=== PATIENT | female | born 1960 | race African-American/Black ===

== ENCOUNTER → 2016-09-17 | Outpatient (CLI) | payer OTHER | LOC: WI 10:39 | DX: Z12.31 Encounter for screening mammogram for malignant neoplasm of breast (principal) | CPT/HCPCS: 77067; G0202 ==

== ENCOUNTER → 2016-10-19 | Outpatient (CLI) | payer OTHER ==
[2016-10-19 10:54] LABS: APPEARANCE,URINE CLEAR; BILIRUBIN,URINE NEGATIVE (NEGATIVE); GLUCOSE, URINE NEGATIVE (NEGATIVE); KETONES,URINE NEGATIVE (NEGATIVE); LEUKOCYTE ESTERASE,URINE NEGATIVE (NEGATIVE); NITRITE,URINE NEGATIVE (NEGATIVE); PROTEIN,URINE NEGATIVE (NEGATIVE); URINE SPECIFIC GRAVITY 1.001; UROBILINOGEN,URINE NEGATIVE mg/dL (<2.0)
[2016-10-19 11:13] LABS: ALANINE AMINOTRANSFERASE 23 U/L (9-52); ALBUMIN 4.1 g/dL (3.5-5.0); ALKALINE PHOSPHATASE 85 U/L (38-126); ANION GAP 8 (5-19); ASPARTATE AMINO TRANSFERASE 22 U/L (14-36); BILIRUBIN,TOTAL 0.6 mg/dL (0.2-1.3); BLOOD UREA NITROGEN 18 mg/dL (7-20); CALCIUM 11.3 mg/dL (8.4-10.2); CARBON DIOXIDE 30 mmol/L (22-30); CHLORIDE 105 mmol/L (98-107); CHOLESTEROL 224.64 mg/dL (0-200); Direct HDL 92 mg/dL (>40); GLUCOSE 80 mg/dL (75-110); SODIUM 142.9 mmol/L (137-145); TOTAL PROTEIN 7.1 g/dL (6.3-8.2); TRIGLYCERIDES 81 mg/dL (<150); URIC ACID 5.8 mg/dL (2.5-7.5)
[2016-10-19 11:22] LABS: POTASSIUM 3.7 mmol/L (3.6-5.0)
[2016-10-19 11:23] LABS: DIRECT LDL 89 mg/dL (<100)
[2016-10-19 11:42] LABS: THYROID STIMULATING HORMONE 2.95 uIU/mL (0.47-4.68)
--- NOTE | 2016-10-19 17:13 | EKG REPORT ---
SEVERITY:- ABNORMAL ECG - SINUS RHYTHM CONSIDER LEFT VENTRICULAR HYPERTROPHY : Confirmed by: Rosalie Gaston MD 19-Oct-2016 17:12:53
== END ==
LOC: CCC 09:18
DX: M25.50 Pain in unspecified joint (principal); I10 Essential (primary) hypertension; L65.9 Nonscarring hair loss, unspecified
CPT/HCPCS: 36415; 80053; 80061; 81001; 84439; 84443; 84550; 85652; 86038; 86430; 93005; 93010

== ENCOUNTER → 2017-02-25 | Outpatient (CLI) | payer OTHER ==
[2017-02-25 18:11] LABS: ALBUMIN 3.6 g/dL (3.5-5.0); CALCIUM 10.1 mg/dL (8.4-10.2); MAGNESIUM 2.5 mg/dL (1.6-2.3); PHOSPHORUS 3.7 mg/dL (2.5-4.5)
== END ==
LOC: CCC 17:06
DX: E83.52 Hypercalcemia (principal)
CPT/HCPCS: 36415; 82040; 82310; 82330; 83735; 83970; 84100

== ENCOUNTER → 2018-09-20 | Outpatient (CLI) | payer OTHER ==
--- NOTE | 2018-09-20 15:49 | RADIOLOGY REPORT (SQ) ---
EXAM DESCRIPTION: ANKLE RIGHT AP/LATERAL COMPLETED DATE/TIME: 09/20/2018 3:35 pm REASON FOR STUDY: RT ANKLE SWELLING; ANKYLOSIS RT ANKLE M24.671 ANKYLOSIS, RIGHT ANKLE COMPARISON: None. NUMBER OF VIEWS: Two views. TECHNIQUE: AP and lateral radiographic images acquired of the right ankle. LIMITATIONS: None. FINDINGS: MINERALIZATION: Normal. BONES: No acute fracture or dislocation. No worrisome bone lesions. JOINTS: There is a small joint effusion. SOFT TISSUES: There is soft tissue swelling. OTHER: No other significant finding. IMPRESSION: Small joint effusion. Soft tissue swelling. No fracture. TECHNICAL DOCUMENTATION: JOB ID: [id number] [employer]- All Rights Reserved Reading location - IP/workstation name: [email or web address]
== END ==
LOC: OD 15:19
DX: M24.671 Ankylosis, right ankle (principal); M25.471 Effusion, right ankle

== ENCOUNTER → 2018-11-09 | Outpatient (CLI) | payer OTHER ==
[2018-11-09 11:35] LABS: ABSOLUTE BASOPHILS # (AUTO) 0.1 10^3/uL (0.0-0.2); ABSOLUTE EOSINOPHILS # (AUTO) 0.1 10^3/uL (0.0-0.6); ABSOLUTE LYMPHOCYTES (AUTO) 2.4 10^3/uL (0.5-4.7); ABSOLUTE MONOCYTES (AUTO) 0.5 10^3/uL (0.1-1.4); ABSOLUTE NEUT (AUTO) 4.5 10^3/uL (1.7-8.2); BASOPHILS % (AUTO) 0.8 % (0-2); EOSINOPHILS % (AUTO) 1.8 % (0-6); HEMATOCRIT 39.2 % (36.0-47.0); HEMOGLOBIN 13.4 g/dL (12.0-15.5); LYMPHOCYTES % (AUTO) 31.7 % (13-45); MEAN CORPUSCULAR HEMOGLOBIN 29.6 pg (27.0-33.4); MEAN CORPUSCULAR HGB CONC 34.3 g/dL (32.0-36.0); MEAN CORPUSCULAR VOLUME 86 fl (80-97); MONOCYTES % (AUTO) 6.7 % (3-13); PLATELET COUNT 365 10^3/uL (150-450); RED BLOOD COUNT 4.54 10^6/uL (3.72-5.28); RED CELL DISTRIBUTION WIDTH 14.9 % (11.5-14.0); TOTAL CELLS COUNTED % (AUTO) 100 %; WHITE BLOOD COUNT 7.6 10^3/uL (4.0-10.5)
[2018-11-09 11:55] LABS: ALANINE AMINOTRANSFERASE 24 U/L (9-52); ALBUMIN 4.6 g/dL (3.5-5.0); ALKALINE PHOSPHATASE 114 U/L (38-126); ANION GAP 9 (5-19); ASPARTATE AMINO TRANSFERASE 29 U/L (14-36); BILIRUBIN,DIRECT 0.3 mg/dL (0.0-0.4); BILIRUBIN,TOTAL 0.4 mg/dL (0.2-1.3); BLOOD UREA NITROGEN 15 mg/dL (7-20); CALCIUM 11.2 mg/dL (8.4-10.2); CARBON DIOXIDE 28 mmol/L (22-30); CHLORIDE 104 mmol/L (98-107); GLUCOSE 88 mg/dL (75-110); POTASSIUM 3.4 mmol/L (3.6-5.0); SODIUM 141.3 mmol/L (137-145); TOTAL PROTEIN 8.2 g/dL (6.3-8.2)
--- NOTE | 2018-11-09 12:57 | RADIOLOGY REPORT (SQ) ---
EXAM DESCRIPTION: KNEE RIGHT 2 VIEWS COMPLETED DATE/TIME: 11/09/2018 11:39 am REASON FOR STUDY: TRAUMATIC ARTHROPATHY, RIGHT KNEE Z00.00 ENCNTR FOR GENERAL ADULT MEDICAL EXAM W/ O ABNORMAL FI M12.561 TRAUMATIC ARTHROPATHY, RIGHT KNEE COMPARISON: None. NUMBER OF VIEWS: Two views. TECHNIQUE: AP and lateral radiographic images acquired of the right knee. LIMITATIONS: None. FINDINGS: MINERALIZATION: Normal. BONES: No acute fracture or dislocation. No worrisome bone lesions. JOINT: No effusion. SOFT TISSUES: No soft tissue swelling. No radio-opaque foreign body. OTHER: No other significant finding. IMPRESSION: NEGATIVE STUDY OF THE RIGHT KNEE. NO RADIOGRAPHIC EVIDENCE OF ACUTE INJURY. TECHNICAL DOCUMENTATION: JOB ID: [id number] [employer]- All Rights Reserved Reading location - IP/workstation name: [email or web address]
== END ==
LOC: CCC 10:49
DX: Z00.00 Encounter for general adult medical examination without abnormal findings (principal); M12.561 Traumatic arthropathy, right knee
CPT/HCPCS: 36415; 80053; 82306; 82330; 83036; 83970; 85025

== ENCOUNTER → 2019-05-08 | Outpatient (CLI) | payer OTHER ==
[2019-05-08 13:29] LABS: ALBUMIN 4.4 g/dL (3.5-5.0); ALKALINE PHOSPHATASE 126 U/L (38-126); ANION GAP 7 (5-19); ASPARTATE AMINO TRANSFERASE 30 U/L (14-36); BILIRUBIN,DIRECT 0.1 mg/dL (0.0-0.4); BILIRUBIN,TOTAL 0.3 mg/dL (0.2-1.3); BLOOD UREA NITROGEN 18 mg/dL (7-20); CALCIUM 11.3 mg/dL (8.4-10.2); CARBON DIOXIDE 31 mmol/L (22-30); CHLORIDE 104 mmol/L (98-107); GLUCOSE 93 mg/dL (75-110); POTASSIUM 3.9 mmol/L (3.6-5.0)
[2019-05-09 07:38] LABS: HEPATITIS C VIRUS AB 0.1 s/co ratio (0.0-0.9)
== END ==
LOC: CCC 12:26
DX: E21.2 Other hyperparathyroidism (principal); Z20.5 Contact with and (suspected) exposure to viral hepatitis
CPT/HCPCS: 36415; 80053; 86803; 86804

== ENCOUNTER 2019-07-17 16:21 | Inpatient (IN) | payer MEDICAID, OTHER ==
--- NOTE | 2019-07-17 16:28 | ER Document Report ---
ED Medical Screen (RME) - General Chief Complaint: Slurred Speech Stated Complaint: SLURRED SPEECH Time Seen by Provider: 07/17/19 16:23 Primary Care Provider: RICARDO KIMBALL [Primary Care Provider] - Follow up as needed Mode of Arrival: Ambulatory Information source: Patient Notes: 58-year-old female presented to ED for complaint of strokelike symptoms at her primary care's office. She states she has been having these symptoms since Tuesday. She states she has had some feeling like her tongue was swollen some slurring of her speech drooping of her face and she states she keeps falling since Tuesday. She states she has no new symptoms since Tuesday. She states she attempted to give plasma today so they took her off of it. She then went to her primary care doctor who noticed her symptoms and sent her to the emergency room. Patient is alert oriented she does have a little bit of slurring to her speech. Patient does have some droop to the left side of her face there is no palmar drift. She states she has had some weakness to the left leg. She does have some weight gain in the past month. I have greeted and performed a rapid initial assessment of this patient. A comprehensive ED assessment and evaluation of the patient, analysis of test results and completion of medical decision making process will be conducted by an additional ED providers. TRAVEL OUTSIDE OF THE [place] IN LAST 30 DAYS: No - Related Data Allergies/Adverse Reactions: acetaminophen [From Percocet] Allergy (Verified 10/15/12 11:56) ibuprofen [Ibuprofen] Allergy (Verified 10/15/12 11:56) morphine [Morphine] Allergy (Verified 10/15/12 11:56) oxycodone HCl [From Percocet] Allergy (Verified 10/15/12 11:56) prochlorperazine edisylate [From Compazine] Allergy (Verified 10/15/12 11:55) prochlorperazine maleate [From Compazine] Allergy (Verified 10/15/12 11:55) Past Medical History - Past Medical History Cardiac Medical History: Reports: Hx Hypertension - Immunizations Immunizations up to date: Yes Hx Diphtheria, Pertussis, Tetanus Vaccination: Yes Doctor's Discharge - Discharge Referrals: RICARDO KIMBALL [Primary Care Provider] - Follow up as needed
[2019-07-17 17:26] LABS: ABSOLUTE EOSINOPHILS # (AUTO) 0.2 10^3/uL (0.0-0.6); ABSOLUTE LYMPHOCYTES (AUTO) 1.7 10^3/uL (0.5-4.7); ABSOLUTE MONOCYTES (AUTO) 0.4 10^3/uL (0.1-1.4); ABSOLUTE NEUT (AUTO) 4.2 10^3/uL (1.7-8.2); BASOPHILS % (AUTO) 0.7 % (0-2); EOSINOPHILS % (AUTO) 2.6 % (0-6); HEMATOCRIT 40.5 % (36.0-47.0); HEMOGLOBIN 13.4 g/dL (12.0-15.5); LYMPHOCYTES % (AUTO) 25.6 % (13-45); MEAN CORPUSCULAR HEMOGLOBIN 29.3 pg (27.0-33.4); MEAN CORPUSCULAR HGB CONC 33.1 g/dL (32.0-36.0); MEAN CORPUSCULAR VOLUME 88 fl (80-97); MONOCYTES % (AUTO) 6.5 % (3-13); PLATELET COUNT 355 10^3/uL (150-450); RED BLOOD COUNT 4.59 10^6/uL (3.72-5.28); RED CELL DISTRIBUTION WIDTH 15.1 % (11.5-14.0); SEGMENTED NEUTROPHILS % (AUTO) 64.6 % (42-78); TOTAL CELLS COUNTED % (AUTO) 100 %; WHITE BLOOD COUNT 6.6 10^3/uL (4.0-10.5)
[2019-07-17 17:33] LABS: INTERNATIONAL RATION (INR) 0.87; PARTIAL THROMBOPLASTIN TIME 28.4 SEC (23.5-35.8); PROTHROMBIN TIME 11.8 SEC (11.4-15.4)
[2019-07-17 17:37] LABS: AMORPHOUS SEDIMENT,URINE TRACE /HPF; APPEARANCE,URINE CLOUDY; BILIRUBIN,URINE NEGATIVE (NEGATIVE); COLOR,URINE YELLOW; GLUCOSE, URINE NEGATIVE (NEGATIVE); KETONES,URINE NEGATIVE (NEGATIVE); PROTEIN,URINE NEGATIVE (NEGATIVE); URINE SPECIFIC GRAVITY 1.006; UROBILINOGEN,URINE NEGATIVE mg/dL (<2.0)
[2019-07-17 17:46] LABS: ALBUMIN 3.8 g/dL (3.5-5.0); ALKALINE PHOSPHATASE 105 U/L (38-126); ANION GAP 9 (5-19); ASPARTATE AMINO TRANSFERASE 26 U/L (14-36); BILIRUBIN,DIRECT 0.1 mg/dL (0.0-0.4); BILIRUBIN,TOTAL 0.2 mg/dL (0.2-1.3); BLOOD UREA NITROGEN 15 mg/dL (7-20); CALCIUM 10.2 mg/dL (8.4-10.2); CARBON DIOXIDE 28 mmol/L (22-30); CHLORIDE 104 mmol/L (98-107); GLUCOSE 95 mg/dL (75-110); POTASSIUM 3.5 mmol/L (3.6-5.0); TOTAL PROTEIN 6.9 g/dL (6.3-8.2)
--- NOTE | 2019-07-17 18:55 | RADIOLOGY REPORT (SQ) ---
EXAM DESCRIPTION: CT HEAD WITHOUT COMPLETED DATE/TIME: 07/17/2019 6:38 pm REASON FOR STUDY: Slurred speech, left weakness COMPARISON: CT brain 12/12/2009 TECHNIQUE: Axial images acquired through the brain without intravenous contrast. Images reviewed wi th bone, brain and subdural windows. Additional sagittal and coronal reconstructions were generated. Images stored on PACS. All CT scanners at this facility use dose modulation, iterative reconstruction, and/or weight based d osing when appropriate to reduce radiation dose to as low as reasonably achievable (ALARA). [facility]: Dose Right [facility]: CareDose [facility]: Dose Right [facility]: Teradose 4D [facility]: [employer] RADIATION DOSE: CT Rad equipment meets quality standard of care and radiation dose reduction techniq ues were employed. CTDIvol: 53.2 mGy. DLP: 991 mGy-cm. mGy. LIMITATIONS: None. FINDINGS: VENTRICLES: Normal size and contour. CEREBRUM: There is focal low attenuation along the right posterior limb internal capsule/medial basal ganglia on axial images 16-19 and coronal image 32/60. This could represent an early subacute infar ct 1 week to 1-month-old. No CT evidence of acute intracranial hemorrhage, mass effect, or midline s hift. CEREBELLUM: No masses. No hemorrhage. No alteration of density. No evidence for acute infarction. EXTRAAXIAL SPACES: No fluid collections. No masses. ORBITS AND GLOBE: No intra- or extraconal masses. Normal contour of globe without masses. CALVARIUM: No fracture. PARANASAL SINUSES: No fluid or mucosal thickening. SOFT TISSUES: No mass or hematoma. OTHER: No other significant finding. IMPRESSION: Early subacute nonhemorrhagic infarct in the right posterior limb internal capsule/later al basal ganglia. EVIDENCE OF ACUTE STROKE: Yes COMMENT: Quality ID # [id number]: Final reports with documentation of one or more dose reduction techniques (e.g., Automated exposure control, adjustment of the mA and/or kV according to patient size, use of iterative reconstruction technique) TECHNICAL DOCUMENTATION: JOB ID: [id number] [employer]- All Rights Reserved Reading location - IP/workstation name: [email or web address]
[2019-07-17] MEDS ORDERED: ATORVASTATIN CALCIUM 20 MG TABLET PO ONE (19:35)
[2019-07-17] MEDS ORDERED: ASPIRIN 81 MG TABLET, CHEWABLE PO ONE (19:35)
--- NOTE | 2019-07-17 19:46 | ER Document Report ---
ED Neuro Symptoms/Deficit - General Chief Complaint: Slurred Speech Stated Complaint: SLURRED SPEECH Time Seen by Provider: 07/17/19 16:23 Primary Care Provider: [facility] [Primary Care Provider] - Follow up as needed Mode of Arrival: Ambulatory Information source: Patient, Relative Notes: Hx. HTN. No DM. Non-smoker. No CAD. FHx. negative for CVA. Not taking ASA or Statin. TRAVEL OUTSIDE OF THE [place] IN LAST 30 DAYS: No - HPI Patient complains to provider of: Difficulty walking, Facial Droop, Speech Impairment. No: Falling, Paresthesia, Vision Changes Onset: Other - 4 days ago Awoke with symptoms: No Exact time of onset: 8 PM Tuesday Symptoms are: Constant Duration: Continues in ED, More than 3 hrs Quality of pain: No pain Loss of consciousness: No loss of consciousness Was STROKE ALERT Called: No Baseline Cognitive: Alert, oriented X 3 Baseline Gait: Walks w/o assistance New weakness: LLE, L facial Decreased ability to stand/walk: Difficult Impaired speech/swallowing: Difficult - minimal slurring and tongue feels swollen. Eating/drinking normally. Vision problem/glaucoma: No Associated symptoms: denies: Chest pain, Headache, Seizure Similar symptoms previously: No Recently seen / treated by doctor: Yes - sent to ED by [facility] provider - Related Data Allergies/Adverse Reactions: acetaminophen [From Percocet] Allergy (Verified 10/15/12 11:56) ibuprofen [Ibuprofen] Allergy (Verified 10/15/12 11:56) morphine [Morphine] Allergy (Verified 10/15/12 11:56) oxycodone HCl [From Percocet] Allergy (Verified 10/15/12 11:56) prochlorperazine edisylate [From Compazine] Allergy (Verified 10/15/12 11:55) prochlorperazine maleate [From Compazine] Allergy (Verified 10/15/12 11:55) Past Medical History - General Information source: Patient - On Amlodipine - Social History Smoking Status: Never Smoker Frequency of alcohol use: None Drug Abuse: None Family History: Reviewed & Not Pertinent Patient has suicidal ideation: No Patient has homicidal ideation: No - Past Medical History Cardiac Medical History: Reports: Hx Hypertension - Immunizations Immunizations up to date: Yes Hx Diphtheria, Pertussis, Tetanus Vaccination: Yes Review of Systems - Review of Systems Notes: Constitutional: Negative for fever. HENT: Negative for sore throat. Eyes: Negative for visual changes. Cardiovascular: Negative for chest pain. Respiratory: Negative for shortness of breath. Gastrointestinal: Negative for abdominal pain, vomiting or diarrhea. Genitourinary: Negative for dysuria. Musculoskeletal: Negative for back pain. Skin: Negative for rash. Neurological: As per HPI. 10 point ROS negative except as marked above and in HPI. Physical Exam - Vital signs Vitals: Temp Pulse Resp BP Pulse Ox 98.3 F 85 16 154/94 H 100 07/17/19 16:26 07/17/19 16:26 07/17/19 16:26 07/17/19 16:26 07/17/19 16:26 - Notes Notes: GENERAL: Well-developed well-nourished appearing in no acute distress. SKIN: Good turgor no rashes. HEAD: Normocephalic atraumatic. EYES: PERRLA. Conjunctivae and sclerae clear. EARS: CANALS AND TMS CLEAR. NOSE: CLEAR. MOUTH: Speech is minimally slurred. Normal gag reflex. Patient was eating and drinking when I entered the room and was having no difficulty with this. Moist mucosa. Good dentition. No stridor or edema. No drooling. NECK: Supple. No masses or thyromegaly. No adenopathy. Carotids 2+ without bruits. No JVD. Throat, clear. BACK: Symmetrical without tenderness. CHEST: Respirations unlabored. Breath sounds clear and symmetrical. HEART: Regular rhythm. No murmur gallop or rub. ABDOMEN: Soft nontender without masses, organomegaly or rebound. Bowel sounds normally active. No bruits. GENITALIA: Deferred. EXTREMITIES: No edema. No calf tenderness. Cap refill less than 1.5 seconds. Dorsalis pedis and posterior tibial pulses 3+ and symmetrical. NEUROLOGICAL: GCS 15. Alert and oriented x3. Dragging left lower extremity when she tries to walk but is able to stand. Speech is fluent but mildly slu rred.. Minimal left facial ptosis involving lower face only with otherwise normal cranial nerves II through XII intact. Sensation normal throughout. Motor strength is 4/5 left lower extremity with 5/5 in the other 3 extremities. Normal tone. Course - Re-evaluation Re-evalutation: 12/10/19 19:56 Patient has findings on CT scan consistent with a subacute infarct in the posterior limb of the right internal capsule. There is no associated hemorrhage. This appears to be subacute per radiologist and that is consistent with clinical history. Patient is not a candidate for lytic or interventional therapy based on timeframe. Findings are discussed with on-call hospitalist Dr. Spears who will admit to the floor. Findings and recommendations have been discussed with patient and her boyfriend at the bedside and they expressed understanding and agreement with treatment recommendations.. - Vital Signs Vital signs: Temp Pulse Resp BP Pulse Ox 98.3 F 85 20 131/68 H 100 07/17/19 16:27 07/17/19 16:26 07/17/19 19:21 07/17/19 19:21 07/17/19 19:21 - Laboratory Result Diagrams: 07/17/19 17:02 07/17/19 17:02 Laboratory results interpreted by me: 07/17/19 07/17/19 07/17/19 17:02 17:02 17:04 RDW 15.1 H Potassium 3.5 L Est GFR (MDRD) Non-Af 50 L Urine Blood SMALL H - Diagnostic Test Radiology reviewed: Reports reviewed Discharge - Discharge Clinical Impression: Subacute ischemic CVA Condition: Fair Disposition: ADMITTED INPATIENT Admitting Provider: Regan (Hospitalist) Unit Admitted: Medical Floor Ref[facility]: [facility] [Primary Care Provider] - Follow up as needed
[2019-07-17] MEDS ORDERED: LABETALOL HCL INJ 20 MG/4 ML DISP.SYRIN IV PRN (20:55)
[2019-07-17] MEDS ORDERED: MAGNESIUM HYDROXIDE SUSP 30 ML UDCUP PO PRN (21:01)
[2019-07-17] MEDS ORDERED: ONDANSETRON HCL INJ/PF 4 MG/2 ML SDV IV PRN (21:01)
[2019-07-17] MEDS ORDERED: MAG HYDROX/AL HYDROX/SIMETH SUSP 30 ML UDCUP PO PRN (21:01)
[2019-07-17] MEDS ORDERED: TRAMADOL HCL 50 MG TABLET PO PRN (21:06)
[2019-07-17] MEDS ORDERED: ATORVASTATIN CALCIUM 20 MG TABLET PO SCH (22:00)
[2019-07-17] MEDS ORDERED: HEPARIN SOD (PORCINE) 5,000 UNIT/ML 1 ML VIAL SUBCUT SCH (22:00)
[2019-07-17] MEDS ORDERED: FAMOTIDINE 20 MG TABLET PO SCH (22:00)
[2019-07-17 22:29] VITALS: BP 129/73
--- NOTE | 2019-07-18 00:09 | PDOC H&P ---
History of Present Illness Admission Date/PCP: 07/17/19 20:08 [facility] Patient complains of: Left-sided weakness History of Present Illness: STAN OATES is a 58 year old female who presents the emergency room with a 5- day history of left-sided weakness. She admits to the sudden onset of mild weakness in her left lower extremity associated with mild drooping of the left side of her face as well as minimal slurring of her speech "I feel like my tongue is thick", beginning 5 days ago and persisting since that time. She denies other associated or accompanying signs and symptoms. She denies prior similar episodes. She has not identified any aggravating or ameliorating f actors for her left-sided weakness. In the emergency room she was found to have an ischemic stroke involving the posterior horn of the right internal capsule. She was subsequently admitted to the hospital for further evaluation and treatment. Past Medical History Cardiac Medical History: Reports: Hypertension Denies: Coronary Artery Disease, Myocardial Infarction, Hyperlipidema Pulmonary Medical History: Denies: Asthma, Chronic Obstructive Pulmonary Disease (COPD) EENT Medical History: Denies: Cataracts, Ears - Hearing aids Neurological Medical History: Denies: Hemorrhagic CVA, Ischemic CVA, Seizures Endocrine Medical History: Denies: Diabetes Mellitus Type 1, Diabetes Mellitus Type 2, Hyperthyroidism, Hypothyroidism, Obesity Renal/ Medical History: Denies: Chronic Kidney Disease, Nephrolithiasis Malignancy Medical History: Reports: None GI Medical History: Denies: Cirrhosis, Crohn's Disease, Hepatitis, Ulcerative Colitis Musculoskeltal Medical History: Denies: Arthritis, Gout Skin Medical History: Denies: Eczema, Psoriasis Psychiatric Medical History: Denies: Alcohol Dependency, Substance Abuse, Tobacco Dependency Traumatic Medical History: Reports: None Hematology: Denies: Anemia, Bleeding Tendencies Infectious Medical History: Reports: None Past Surgical History Past Surgical History: Reports: None Social History Information Source: Patient Lives with: Alone Smoking Status: Never Smoker Electronic Cigarette use?: No Frequency of Alcohol Use: None Hx Recreational Drug Use: No Drugs: None Hx Prescription Drug Abuse: No - Advance Directive Resuscitation Status: Full Code Surrogate healthcare decision maker:: Saul Bray Family History Family History: Hypertension. denies: CAD, CVA, DM, Malignancy Parental Family History Reviewed: Yes Children Family History Reviewed: No Sibling(s) Family History Reviewed.: Yes Medication/Allergy Home Medications: Amlodipine Besylate [Norvasc 5 mg Tablet] 5 mg PO DAILY 07/17/19 Cyclobenzaprine HCl [Flexeril 10 mg Tablet] 10 mg PO Q8HP PRN 07/17/19 Penicillin V Potassium [Penicillin Vk 500 mg Tablet] 250 mg PO QIDP PRN 07/17/19 Tramadol HCl [Ultram 50 mg Tablet] 50 mg PO Q6HP PRN 07/17/19 Allergies/Adverse Reactions: acetaminophen [From Percocet] Allergy (Verified 10/15/12 11:56) ibuprofen [Ibuprofen] Allergy (Verified 10/15/12 11:56) morphine [Morphine] Allergy (Verified 10/15/12 11:56) oxycodone HCl [From Percocet] Allergy (Verified 10/15/12 11:56) prochlorperazine edisylate [From Compazine] Allergy (Verified 10/15/12 11:55) prochlorperazine maleate [From Compazine] Allergy (Verified 10/15/12 11:55) Review of Systems Constitutional: PRESENT: as per HPI, weakness - Left lower extremity and left facial weakness. ABSENT: chills, fever(s), headache(s) Eyes: ABSENT: visual disturbances, other - Eye pain Ears: ABSENT: hearing changes, other - Ear pain Nose, Mouth, and Throat: ABSENT: headache(s), mouth pain, sore throat Cardiovascular: ABSENT: chest pain, palpitations Respiratory: ABSENT: cough, dyspnea Gastrointestinal: ABSENT: abdominal pain, constipation, diarrhea, nausea, vomiting Musculoskeletal: PRESENT: muscle weakness - Left lower extremity and left facial weakness. ABSENT: back pain, joint swelling Integumentary: ABSENT: pruritus, rash Neurological: PRESENT: abnormal speech - Mild slurring of speech, focal weakness - Left lower extremity and left facial weakness. ABSENT: abnormal gait, abnormal movements, confusion, convulsions, lack of coordination, memory loss, syncope Psychiatric: ABSENT: anxiety, depression Endocrine: ABSENT: cold intolerance, heat intolerance Hematologic/Lymphatic: ABSENT: easy bleeding, easy bruising Allergic/Immunologic: ABSENT: seasonal rhinorrhea Physical Exam Vital Signs: Temp Pulse Resp BP Pulse Ox 98.3 F 85 20 131/68 H 100 07/17/19 16:27 07/17/19 16:26 07/17/19 19:21 07/17/19 19:21 07/17/19 19:21 Intake & Output 07/15/19 07/16/19 07/17/19 23:59 23:59 23:59 Weight 63.9 kg General appearance: PRESENT: no acute distress, cooperative Head exam: PRESENT: atraumatic, normocephalic Eye exam: PRESENT: conjunctiva pink, EOMI. ABSENT: conjunctival injection, nystagmus, scleral icterus Ear exam: PRESENT: normal external ear exam. ABSENT: bleeding, drainage Mouth exam: PRESENT: dry mucosa, neck supple Neck exam: ABSENT: thyromegaly, tracheal deviation Respiratory exam: PRESENT: clear to auscultation robyn, symmetrical, unlabored Cardiovascular exam: PRESENT: RRR. ABSENT: clicks, gallop, rubs Pulses: PRESENT: normal radial pulses, normal dorsalis pedis pul Vascular exam: PRESENT: normal capillary refill. ABSENT: pallor GI/Abdominal exam: PRESENT: normal bowel sounds, soft. ABSENT: tenderness Rectal exam: PRESENT: deferred Extremities exam: ABSENT: joint swelling, pedal edema Musculoskeletal exam: ABSENT: deformity, dislocation Neurological exam: PRESENT: alert, oriented to person, oriented to place, oriented to time, oriented to situation, motor sensory deficit - Mild left lower extremity weakness, mild left facial weakness in the muscles of facial expression, other - Minimal dysarthria Psychiatric exam: PRESENT: appropriate affect, normal mood Skin exam: PRESENT: dry, intact, warm. ABSENT: jaundice, rash, urticaria Results Laboratory Results: 07/17/19 17:02 07/17/19 17:02 07/17/19 07/17/19 07/17/19 17:02 17:02 17:04 WBC 6.6 RBC 4.59 Hgb 13.4 Hct 40.5 MCV 88 MCH 29.3 MCHC 33.1 RDW 15.1 H Plt Count 355 Seg Neutrophils % 64.6 Sodium 141.4 Potassium 3.5 L Chloride 104 Carbon Dioxide 28 Anion Gap 9 BUN 15 Creatinine 1.12 Est GFR ( Amer) > 60 Glucose 95 Calcium 10.2 Total Bilirubin 0.2 AST 26 Alkaline Phosphatase 105 Total Protein 6.9 Albumin 3.8 Lipase 98.5 Urine Color YELLOW Urine Appearance CLOUDY Urine pH 9.0 Ur Specific [place] 1.006 Urine Protein NEGATIVE Urine Glucose (UA) NEGATIVE Urine Ketones NEGATIVE Urine Blood SMALL H Urine RBC (Auto) 3 Impressions: Head CT 07/17/19 16:28 IMPRESSION: Early subacute nonhemorrhagic infarct in the right posterior limb internal capsule/lateral basal ganglia. EVIDENCE OF ACUTE STROKE: Yes Assessment and Plan - Diagnosis (1) Dysarthria Is this a current diagnosis for this admission?: Yes (2) Weakness of right lower extremity Is this a current diagnosis for this admission?: Yes (3) Weakness on right side of face Is this a current diagnosis for this admission?: Yes (4) Hypokalemia Is this a current diagnosis for this admission?: Yes (5) Hypertension Qualifiers: Hypertension type: essential hypertension Qualified Code(s): I10 - Essential (primary) hypertension Is this a current diagnosis for this admission?: Yes - Plan Summary Summary: Patient will be admitted to the stroke protocol and receive usual supportive and symptomatic cares. Her blood pressure was monitored closely with frequent vital signs as well her neurologic signs and symptoms. Her hypokalemia will be replaced with oral therapy. Physical therapy, occupational therapy and speech therapy consultations will be obtained. An MRI and MRA of the brain will be obtained as well an MRI of the carotid arteries. An echocardiogram will also be obtained. A CBC and metabolic profile will be obtained as needed as part of her ongoing evaluation. A magnesium level will be obtained in the morning. A lipid profile and TSH will also be obtained. Patient will be started on an antiplatelet agent and a statin per protocol. - Time Time Spent with patient: 15-24 minutes Medications reviewed and adjusted accordingly: Yes Anticipated discharge: Home with Homehealth - Inpatient Certification Based on my medical assessment, after consideration of the patient's comorbidities, presenting symptoms, or acuity I expect that the services needed warrant INPATIENT care.: Yes I certify that my determination is in accordance with my understanding of Medicare's requirements for reasonable and necessary INPATIENT services [42 CFR 412.3e].: Yes Medical Necessity: Need Close Monitoring Due to Risk of Patient Decompensation, Need for Neurological Checks, Risk of Complication if Not Cared For in Hospital
--- NOTE | 2019-07-18 00:11 | Left Against Medical Advice ---
Against Medical Advice Admission Date/Time: 07/17/19 20:08 Primary Care Provider: [facility] Date of Patient Emigration: 07/18/19 - Diagnosis: (1) Dysarthria Is this a current diagnosis for this admission?: Yes (2) Weakness of right lower extremity Is this a current diagnosis for this admission?: Yes (3) Weakness on right side of face Is this a current diagnosis for this admission?: Yes (4) Hypokalemia Is this a current diagnosis for this admission?: Yes (5) Hypertension Is this a current diagnosis for this admission?: Yes - Summary: Summary: Please see Admission and Progress Notes as well. STAN OATES is a 58 F, who LEFT AGAINST MEDICAL ADVICE. Patient chose to leave AGAINST MEDICAL ADVICE due to being nonavailability of a private room. The Patient was admitted on 07/17/19 20:08.
--- NOTE | 2019-07-18 07:40 | EKG REPORT ---
SEVERITY:- ABNORMAL ECG - SINUS RHYTHM PROBABLE LEFT ATRIAL ABNORMALITY PROBABLE LVH WITH SECONDARY REPOL ABNRM PROLONGED QT INTERVAL : Confirmed by: Godfrey Rodriguez MD 18-Jul-2019 07:40:04
[2019-07-18] MEDS ORDERED: AMLODIPINE BESYLATE 5 MG TABLET PO SCH (10:00)
[2019-07-18] MEDS ORDERED: CLOPIDOGREL BISULFATE 75 MG TABLET PO SCH (10:00)
[2019-07-18] MEDS ORDERED: DOCUSATE SODIUM 100 MG CAPSULE PO SCH (10:00)
== END 2019-07-17 23:40 | disposition left against medical advice (07) | DRG 66 ==
LOC: ER 16:21 → EH 20:08
PROVIDERS: ADMIT Emergency Medicine; ATTEND Emergency Medicine
DX: I63.9 Cerebral infarction, unspecified (principal); E87.6 Hypokalemia; R53.1 Weakness; R47.1 Dysarthria and anarthria; I10 Essential (primary) hypertension; R29.810 Facial weakness; Z82.3 Family history of stroke; Z82.49 Family history of ischemic heart disease and other diseases of the circulatory system; Z88.6 Allergy status to analgesic agent; Z88.8 Allergy status to other drugs, medicaments and biological substances
CPT/HCPCS: 36415; 70450; 80053; 81001; 83690; 85025; 85610; 85730; 93005; 93010; 99285

== ENCOUNTER → 2020-05-01 | Outpatient (CLI) | payer MEDICAID ==
--- NOTE | 2020-05-01 16:18 | RADIOLOGY REPORT (SQ) ---
EXAM DESCRIPTION: CAROTID DOPPLER IMAGES COMPLETED DATE/TIME: 05/01/2020 4:04 pm REASON FOR STUDY: CIRCULATORY SYMPTOMS R09.89 OTH SYMPTOMS AND SIGNS INVOLVING THE CIRC AND RESP SY COMPARISON: None. TECHNIQUE: Grayscale ultrasound, Doppler velocity and spectra, and color Doppler images acquired of the extra-cranial carotid and vertebral arteries. Images stored on PACS. LIMITATIONS: None. FINDINGS: RIGHT CAROTID CCA Velocities: Within normal limits. ICA Velocities Peak systolic 0.66 m/s. End diastolic 0.32 m/s. Proximal ICA/CCA peak systolic ratio 1.4. Mild plaque in the bifurcation. LEFT CAROTID CCA Velocities: Within normal limits. ICA Velocities Peak systolic 1.01 m/s. End diastolic 0.40 m/s. Proximal ICA/CCA peak systolic ratio 1.7. Spectra normal. No significant plaque. VERTEBRAL ARTERIES: Antegrade flow. Normal waveforms. SUBCLAVIAN ARTERIES: Not imaged. OTHER: No other significant finding. IMPRESSION: NO HEMODYNAMICALLY SIGNIFICANT STENOSIS. COMMENT: Quality ID #[id number]: Velocity criteria are extrapolated from the diameter data as defined by t he Society of Radiologists in Ultrasound Consensus Conference. Radiology 2003: 229; 340-346. TECHNICAL DOCUMENTATION: JOB ID: [id number] [employer]- All Rights Reserved Reading location - IP/workstation name: [email or web address]
== END ==
LOC: RAD 14:56
PROVIDERS: ATTEND Internal Medicine Cardiovascular Disease
DX: R09.89 Other specified symptoms and signs involving the circulatory and respiratory systems (principal)
CPT/HCPCS: 93880